=== PATIENT | female | born 1980 | race Caucasian/White ===

== ENCOUNTER 2020-11-09 05:05 | Inpatient (IN) | payer OTHER, SELFPAY ==
[2020-11-09] VITALS (122 sets, daily range): BP systolic 72–179; BP diastolic 35–157; PULSE 53–152; RESP 16–18; TEMP 36.4–37.1; O2SAT 73–100; BMI 29.3
[2020-11-09] MEDS: LACTATED RINGERS 1,000 ML 125 ML IV CONT ×3 (05:57→08:41)
--- NOTE | 2020-11-09 06:10 | LDADM ---
This patient, Stefani Alegria, was admitted to Labor/Delivery/Recovery 103 on 11/09/20 at 05:05. Plans for labor, pain management and were discussed with patient. Patient/family oriented to hospital policies and general routines including ID bracelet, bed and alarms, visiting hours, pain management, procedures, bathroom and other care routines, personal items, smoking policy, room service/diet and guest tray routines, security routines, and visiting hours. Patient/Family are encouraged to report perceived risks to care and to ask questions if they do not understand what they are told or what they should do. See OBIX for further documentation.
[2020-11-09 06:17] LABS: Basophils Percent Auto 0.3 % (0.2-1.2); Eosinophils Absolute Auto 0.1 K/mm3 (0-0.3); Eosinophils Percent Auto 1.1 % (0-4.4); Hematocrit 38.9 % (37.0-47.0); Hemoglobin 13.3 g/dL (12.0-15.0); Immature Granulocyte Absolute 0.09 K/mm3 (0.00-0.031); Immature Granulocyte Percent A 0.8 % (0-0.5); Lymphocytes Absolute Auto 1.81 K/mm3 (0.9-3.2); Lymphocytes Percent Auto 15.2 % (18.3-44.2); Mean Corpuscular HGB Conc 34.2 g/dl (32-36); Mean Corpuscular Volume 90.7 fl (80-100); Mean Platelet Volume 10.7 fl (7.4-10.4); Monocytes Percent Auto 8.2 % (2.6-8.5); Neutrophils Absolute Auto 8.9 K/mm3 (1.3-6.7); Neutrophils Percent Auto 74.4 % (45.5-73.1); Platelet Count Result 175 k/mm3 (150-375); Red Blood Count 4.29 M/mm3 (4.2-5.4); Red Cell Distribution Width 13.6 % (11.5-14.5); White Blood Count 11.9 K/mm3 (4.5-10.0)
[2020-11-09] MEDS: OXYTOCIN 30 UNITS/NS 500 ML 30 UNITS/500 ML BAG IV CONT (06:42)
--- NOTE | 2020-11-09 07:42 | WPDOBADMIT ---
Obstetrics - Admit Note Admission Note: record reviewed. No pertinent additions to the history and/or any subsequent changes in the physical findings that are not consistent with the expected course of the were found. AROm clear fluid 4-5/50/-2 vertex Additions to the history and/or subsequent changes in the physical findings follow. None.
[2020-11-09] MEDS: ePHEDrine sulfate INJ 50 MG/ML AMPUL (08:38)
--- NOTE | 2020-11-09 08:52 | P.PNAN_ITS ---
Anes - Eval Pre Procedure Procedure: Labor Pain Management Date/Time: 11/09/20 08:52 Surgeon: Ina Preop Diagnosis: Pain During Labor Pre Op Diagnosis: Induction of Labor Patient Data Age: 40 Gender: F Height: 1.65 m Weight: 80 kg Last Vital Signs Temp 98.8 F 11/09/20 07:41 Pulse 80 11/09/20 08:51 BP 91/67 L 11/09/20 08:51 Pulse Ox 98 11/09/20 08:47 Allergies Allergy/AdvReac Type Severity Reaction Status Date / Time No Known Allergies Allergy Verified 10/19/20 12:40 Laboratory Tests 11/09/20 11/09/20 11/09/20 05:39 05:39 05:39 WBC 11.9 K/mm3 H K/mm3 (4.5-10.0) RBC 4.29 M/mm3 M/mm3 (4.2-5.4) Hgb 13.3 g/dL g/dL (12.0-15.0) Hct 38.9 % % (37.0-47.0) MCV 90.7 fl fl (80-100) MCH 31.0 pg pg (26-34) MCHC 34.2 g/dl g/dl (32-36) RDW 13.6 % % (11.5-14.5) Plt Count 175 k/mm3 k/mm3 (150-375) MPV 10.7 fl H fl (7.4-10.4) Immature Gran % (Auto) 0.8 % H % (0-0.5) Neut % (Auto) 74.4 % H % (45.5-73.1) Lymph % (Auto) 15.2 % L % (18.3-44.2) [place] % (Auto) 8.2 % % (2.6-8.5) Eos % (Auto) 1.1 % % (0-4.4) Baso % (Auto) 0.3 % % (0.2-1.2) Lymph # (Auto) 1.81 K/mm3 K/mm3 (0.9-3.2) [place] # (Auto) 1.0 K/mm3 H K/mm3 (0.1-0.6) Eos # (Auto) 0.1 K/mm3 K/mm3 (0-0.3) Baso # (Auto) 0.0 K/mm3 K/mm3 (0.0-0.1) Abs Immat Gran (auto) 0.09 K/mm3 H K/mm3 (0.00-0.031) Absolute Neuts (auto) 8.9 K/mm3 H K/mm3 (1.3-6.7) Absolute Nucleated RBC 0.0 K/mm3 K/mm3 (0.0-0.012) Nucleated RBC % 0.0 % % (0.0-0.2) RPR Pending Blood Type B Positive Antibody Screen Negative : gestational age (EDC 11/15/20) HCG: positive Patient hx anesthesia problems: none Family hx anesthesia problems: none PMFSH Past Medical History Medical History (Updated 11/09/20 @ 08:54 by Denise Mccord CRNA) Pain during labor Family History Family History (Updated 10/19/20 @ 12:41 by Michael Stephenson RN) Other No pertinent family history Social History Social History Smoking status: Never smoker Substance use: never Spiritual care concerns: No Exam Day of Procedure 11/09/20 08:52
[2020-11-09 11:20] LABS: Rapid Plasma Reagin Non-Reactive (NonReactive)
--- NOTE | 2020-11-09 13:17 | PM.OBPRVD ---
OB - Delivery Note Procedure Delivery date: 11/09/20 Procedure: vavd events: Labor Induction Intrapartal events: None Induction method: AROM and per pitocin protocol Delivery monitor: external FHT and external uterine Route of delivery: vacuum extraction (one pull no pop off pressure green zone. ) Laceration Description: Perineal - 2nd Degree Delivery repair: vicryl Specimen: No Quantitative Blood Loss (ml): 160 Anesthesia type: Epidural Disposition: floor Baby Date of : 11/09/20 Time of : 12:57 Weeks of gestation at delivery: 39 gender: Female Weight (pounds): 7 Weight (ounces): 12 presentation: vertex position: Left Occiput Anterior Placenta delivery description: Spontaneous cord vessel description: 3 Vessels, Nuchal Cord and True Knot score one minute: 8 score five minutes: 9
[2020-11-09] MEDS: OXYTOCIN 30 UNITS/NS 500 ML 30 UNITS/500 ML BAG 125 UNITS IV CONT (13:27)
[2020-11-09] MEDS: IBUPROFEN 600 MG TABLET PO ×2 (15:08→21:30)
[2020-11-09] MEDS: WITCH HAZEL 40 PADS 1 PAD TOPICAL (15:09)
[2020-11-09] MEDS: BENZOCAINE 20% AER SPR (*SP) 56 GM CAN 1 SPRAY TOPICAL (15:09)
--- NOTE | 2020-11-09 16:22 | OBPPTRN ---
Patient transferred to post room # 285 via wheelchair. Support person present. Oriented to unit, room, information board, rooming in, admission packet and security measures. Patient verbalizes understanding. PT received instructions and education per mom baby care guide, one to one discussion and demonstration through out the shift. PT and spouse both recipients of such instructions and no barriers to learning identified.
[2020-11-10 00:13] VITALS: BP 105/58; PULSE 77; RESP 16; TEMP 36.3; O2SAT 99
[2020-11-10] MEDS: IBUPROFEN 600 MG TABLET PO ×2 (04:19→10:31)
[2020-11-10 05:21] VITALS: BP 112/60; PULSE 77; RESP 16; TEMP 36.8; O2SAT 100
[2020-11-10 05:24] LABS: Hematocrit 33.8 % (37.0-47.0); Hemoglobin 11.4 g/dL (12.0-15.0)
--- NOTE | 2020-11-10 07:15 | PC.NURSE ---
PT introductions made and plan of care discussed per post . pain management, breast feeding, daily care activities and pending discharge to home. PT received instructions and education this shift per one to one discussion, mom baby care guide and demonstration. PT and spouse both recipients of such instructions and no barriers identified. PT verbalized understanding of such care.
--- NOTE | 2020-11-10 07:28 | P.PNOB_ITS ---
OB - PN: Subj Subjective Date/time seen: 11/10/20 07:28 Patient comments: no complaints and pain well controlled baby status: doing well and nursing well OB - PN: Obj Data Labs CBC & Chem 7: 11/10/20 04:18 Labs: Laboratory Results - last 24 hr 11/09/20 11/09/20 11/10/20 05:39 05:39 04:18 Hgb 11.4 L Hct 33.8 L RPR Non-reactive Blood Type B Positive Antibody Screen Negative OB - PN A/P Plan day: 1 Plan: routine care, discharge home and follow up 6 weeks Time Spent With Patient Time: Total time spent is greater than 50% in coordination of care (as do cumented) at patient's floor/unit and/or counseling patient: Exam : Bimanual exam- vagina & uterus: other (Uterus firm, nt @U)
[2020-11-10 07:55] VITALS: BP 109/58; PULSE 80; RESP 16; TEMP 36.6; O2SAT 99
--- NOTE | 2020-11-10 08:55 | PC.NURSE ---
Consult with pt., mother reports pumping and bottle feeding with first child due to latch issues. Mother states this infant is eagerly latching without difficulties or discomfort. Mother is unsure if she will continue to put to breast, she liked the consistency of pumping and bottle feeding. Reviewed the Reviewed infant feeding cues, frequencies, duration of feedings, feeding elimination flow sheet, and signs of adequate intake. Discussed it is normal to wake for feedings and to stimulate during feedings to keep awake and nursing effectively. Reviewed effective vs ineffective nursing. Nipple care reviewed of lanolin after feeding, before pumping and warm compresses to nipples for tenderness. Mother verbalizes she is able to independently latch infant with appropriate positioning/alignment. She denies any nipple discomfort, is feeding as required and waking to feed if needed. has had several effective feedings in the past 24 hours, and is currently meeting outcomes for weight, output, jaundice and feeding frequencies. Mother states she feels confident to continue effective at home. Reviewed transition to breast milk, signs of adequate intake, and engorgement/relief. Instructed to call ICP if intake/output less than required. Reviewed regular medications mother is taking. Information provided per Jennifer. Reviewed community resources on the [facility] website and in the Mom/Baby guide. Information on outpatient services provided. Mother has no further questions at this time. Requested mother call out next feeding for LC sample shoe inspector and reworker to observe infant feeding. Mother v/u to request.
--- NOTE | 2020-11-10 09:49 | WPDANLDPN2 ---
Anes-Prog Note L&D Date/Time: 11/10/20 09:49 Comfortable throughout: labor and delivery Neuraxial method: epidural Epidural/Spinal procedure site: clean & non-tender Neuro status: Neuro function grossly intact. Cardiovascular status: normal Respiratory status: normal Airway patency: baseline Mental status: baseline Post-Op hydration status: normal Vital Signs: Last Vital Signs Temp 36.6 C 11/10/20 07:55 Pulse 80 11/10/20 07:55 Resp 16 11/10/20 07:55 BP 109/58 L 11/10/20 07:55 Pulse Ox 99 11/10/20 07:55 Pain score (VAS): 3 I/O: Intake & Output 11/09/20 11/10/20 11/10/20 23:59 07:59 15:59 Output Total 300 Balance -300 Post-procedural complaints: none Patient feedback: Patient satisfied with anesthetic care.
[2020-11-10] MEDS: DOCUSATE SODIUM 100 MG CAPSULE PO (10:30)
[2020-11-10] MEDS: LORATADINE 10 MG TABLET PO (10:32)
[2020-11-10 11:44] VITALS: BP 114/58; PULSE 73; RESP 16; TEMP 36.8; O2SAT 99
--- NOTE | 2020-11-10 13:40 | PC.NURSE ---
Mother called out for assist with feeding. Infant is able to freely thrust tongue past gum ridge and flange both lips. Skin is intact on both nipples, no redness and bruising noted. Observed mother is using cross cradle, holding breast in ?U? hold and guided asymmetrical latch on. Reviewed positioning/alignment and Discussed rational for each. Infant able to latch correctly. Reviewed signs of a correct latch, effective nursing and suck swallow ratio. Infant nursed eagerly, with steady draws and frequent swallowing noted. Reviewed the difference of effective vs ineffective nursing. Suggested mother stimulate while feeding to increase stimulation, increase intake and to assist with maintaining deep latch. was able to maintain latch without discomfort to mother. Demonstrated how to adjust latch more deeply while feeding if needed.
--- NOTE | 2020-11-10 14:07 | PC.NURSE ---
pt received discharge instructions per protocol and verbalized understanding of such care.
--- NOTE | 2020-11-10 14:56 | PC.NURSE ---
PT discharged to home ambulatory accompanied by spouse and and taken to waiting car. follow up appts confirmed
[2020-11-11 07:52] VITALS: BP 104/54; PULSE 83; RESP 16; TEMP 37; O2SAT 99
--- NOTE | 2021-01-02 12:10 | P.DS_ITS ---
DS: Admitting Diagnosis Discharge Date 11/10/20 Admitting Diagnosis induction of labor OB - DS: Summary OB Procedures : None OB Procedures Intrapartum: Spontaneous Vag Delivery OB Procedures: : None Time Spent with Patient Time attestation: Total time spent providing and/or coordinating discharge s ervices: Discharge Plan Discharge Attending physician on discharge: Zander Hernandez Discharging Clinician: Maty Dominique Anticipated Discharge Date/Time: 11/10/20 07:29 Patient Disposition: Home, Self-Care Activity: may shower and pelvic rest Diet: regular Discharge Instructions: Education: Mom and Baby Guide Given to: Mother Follow-Up: Call your delivering provider's office for an appointment to be seen in: 6 Weeks Mom and baby should come to the [facility] for the follow-up appointment. Appointment Date/Time: November 11, 2020 at 8:00 am What to expect at your follow-up visit: Blood Pressure Check Call [phone] if you are unable to keep your appointment time. BREAST CARE: * Wear a snug supportive bra. * For engorgement discomfort: Breast Feeding: * Apply warm moist washcloths * Express milk as needed to relieve engorgement * Wear loose clothing * For sore nipples: * Identify correct latch-on * Apply warm moist washcloths before and after nursing * Air dry nipples after nursing * May apply Lansinoh cream to nipples PERINEAL CARE: * Until bleeding stops, use your suraj bottle after urinating * Change your pad frequently throughout the day * You may take sitz baths several times a day (fill your bathtub with warm water and soak for 20 minutes.) Do NOT bathe in the water * No tub baths until seen by your physician - You may shower ACTIVITY: * Rest as much as possible. * Do not exercise or lift anything heavier than your baby (such as laundry or other children.) * Avoid stairs or driving as much as possible. * Do not put anything into the vagina. No douching, tampons, or sexual activity until seen by physician. NOTIFY PHYSICIAN IF YOU HAVE ANY QUESTIONS OR IF ANY OF THE FOLLOWING SYMPTOMS OCCUR: * If your perineum becomes red, swollen, or more painful than what you have experienced in the hospital. * If your vaginal bleeding becomes foul smelling. * If your vaginal bleeding becomes more heavy than a period or if your bleeding changes from pink to bright red. However, you may pass an occasional walnut- sized clot once or twice for the first week . * If you experience a sharp, shooting pain in you calves. * If you discover a hard, reddened area on your breast or if you experience flu- like symptoms. * If you have a fever of 100.4 or greater. DIET: * Eat regular, well-balanced meals. * Drink plenty of fluids daily. If , drink to thirst. Patient Instructions: Antibiotic Form Stand Alone Forms: General Discharge Information Follow-up/Referrals: Zander Hernandez MD [Physician] - 6 Weeks Date of admission: 11/09/20 05:05 Primary Care Provider: Kenroy Gore Admitting Provider: Zander Hernandez Attending physician on admission: Maty Dominique Condition: Stable Care Plan Goals: Plans condoms until vasectomy
== END 2020-11-10 14:56 | disposition home or self-care (01) | DRG 807 ==
LOC: ANHOB2 11-10 07:30 → ANHLDR 11-11 10:15 → ANHOB2 11-11 10:15
PROVIDERS: Admitting Provider Obstetrics & Gynecology; PCP Internal Medicine; Visit Provider Obstetrics & Gynecology Gynecology
DX: O69.2XX0 Labor and delivery complicated by other cord entanglement, with compression, not applicable or unspecified (principal); Z37.0 Single live birth; Z3A.39 39 weeks gestation of pregnancy; O70.1 Second degree perineal laceration during delivery; O36.8330 Maternal care for abnormalities of the fetal heart rate or rhythm, third trimester, not applicable or unspecified
CPT/HCPCS: 36415; 85014; 85018; 85025; 86592; 86850; 86900; 86901; A9270; J2590; J2795; J7120

== ENCOUNTER 2023-03-07 10:27 | Day surgery (SDC) | payer OTHER, SELFPAY ==
[2023-02-21 09:23] VITALS: BMI 26.6
[2023-03-07 11:50] VITALS: BP 122/72; PULSE 85; RESP 16; TEMP 36.5; O2SAT 100
[2023-03-07] MEDS: LACTATED RINGERS 1,000 ML 150 ML IV CONT (12:04)
--- NOTE | 2023-03-07 12:06 | PM.HPGS ---
History of Present Illness History of Present Illness Consent: Risks, benefits, and alternatives have been discussed and questions answered. Patient agrees to proceed with procedure. Chief complaint: Family History of Colon Cancer and polylps Narrative: Stefani Alegria is a 42 year old female Presents for screening colonoscopy. Patient's father has had colon polyps. A sister had colon polyps. Patient also reports that her grandfather had colon cancer and her great grandmother also had colon cancer. A cousin has had colon cancer. Patient presents today for screening colonoscopy. She reports that her own it is are normal. Patient denies abdominal pain. She has had no bleeding. S been a good health. Review of Systems Review of Systems: Review of systems noncontributory. [facility] Past Medical History Medical History (Updated 03/07/23 @ 12:09 by Faraz Mitchell MD) Pain during labor Family History Family History (Updated 10/19/20 @ 12:41 by Michael Stephenson RN) Other No pertinent family history Social History Social History Smoking status: Never smoker Alcohol intake: current Substance use: never Substance use type: does not use Living arrangements: with family Spiritual care concerns: No Meds Home Medications and Allergies Home Medications Medication Instructions Recorded Confirmed Type No Home Medications 02/21/23 03/07/23 History Allergies Allergy/AdvReac Type Severity Reaction Status Date / Time No Known Allergies Allergy Verified 03/07/23 11:48 Vital Signs Vital Signs - 24 hr 03/07/23 11:50 Temperature 97.7 F Pulse Rate 85 Respiratory Rate 16 Blood Pressure 122/72 Pulse Oximetry 100 Oxygen Delivery Room Air Exam Narrative: Physical exam reveals patient vital signs stable. HEENT exam is unremarkable. Patient is anicteric. Lungs are clear to auscultation and percussion. Heart is without murmur or extra sounds. Abdominal exam bowel sounds are present soft nontender with no organomegaly. Digital external rectal rectal exam is normal. Assessment and Plan Assessment and plan (1) Family hx of colon cancer: Code(s): Z80.0 - Family history of malignant neoplasm of digestive organs Status: Acute Assessment and Plan: Several extended family members with colon cancer. Her father and sister have had colon polyps. Plan for surveillance colonoscopy at 5 year intervals. (2) Family history of colonic polyps: Code(s): Z83.719 - Family history of colon polyps, unspecified Status: Acute Assessment and Plan: patients father and sister have had colon polyps. Surveillance colonoscopy advised 5 year intervals.
--- NOTE | 2023-03-07 12:28 | WPDANESEPPF ---
Anes - Initial Pre Proc Eval Procedure: Operation Date: 03/07/23 13:00 Proposed Procedures p Colonoscopy - Faraz Mitchell MD Date/Time: 03/07/23 12:28 Surgeon: Faraz Mitchell MD Pre Op Diagnosis: Family History of Colon Cancer and polylps Patient Data Age: 42 Gender: F Height: 1.65 m Weight: 71 kg Last Vital Signs Temp 36.5 C 03/07/23 11:50 Pulse 85 03/07/23 11:50 Resp 16 03/07/23 11:50 BP 122/72 03/07/23 11:50 Pulse Ox 100 03/07/23 11:50 O2 Del Method Room Air 03/07/23 11:50 Allergies Allergy/AdvReac Type Severity Reaction Status Date / Time No Known Allergies Allergy Verified 03/07/23 11:48 Home Medications Medication Instructions Recorded Confirmed Type No Home Medications 02/21/23 03/07/23 History Patient hx anesthesia problems: none Family hx anesthesia problems: none Results Review: All pre-operative results and documents have been reviewed as part of the pre-operative evaluation. [facility] Past Medical History Medical History (Updated 03/07/23 @ 12:29 by Marlon Sams MD) Migraine Pain during labor Surgical History Surgical History (Updated 03/07/23 @ 12:29 by Marlon Sams MD) H/O colonoscopy Family History Family History (Updated 03/07/23 @ 12:29 by Marlon Sams MD) Other Carcinoma of colon Social History Social History Smoking status: Never smoker Alcohol intake: current Substance use: never Substance use type: does not use Living arrangements: with family Spiritual care concerns: No Anes - Eval Final PreProcedure Day of Procedure 03/07/23 12:28 Patient weight: overweight Heart: regular rate and rhythm Lungs: clear to auscultation Airway: Mallampati scale class 1 Neurological: alert and oriented Last oral intake: >/= 8 hours ASA classification: II Emergent: no Anesthetic plan: proceed Anesthesia type and monitoring: general GIVS and standard monitoring Results Review: All pre-operative results and documents have been reviewed as part of the pre-operative evaluation. Informed Consent: The patient's anesthetic plan and its attendant risks and benefits were discussed with the patient/family/POA. Questions were solicited and answers provided to the satisfaction of the patient/family/POA.
[2023-03-07 13:26] VITALS: BP 104/53; PULSE 87; RESP 16; O2SAT 100
[2023-03-07 13:36] VITALS: BP 90/67; PULSE 71; RESP 16; O2SAT 100
--- NOTE | 2023-03-07 13:42 | WPDANESPN ---
Anes - Prog Note Post-Op Date/Time: 03/07/23 13:42 Cardiovascular status: normal Respiratory status: normal Airway patency: baseline Mental status: baseline Post-Op hydration status: normal Vital Signs: Last Vital Signs Temp 36.5 C 03/07/23 11:50 Pulse 71 03/07/23 13:36 Resp 16 03/07/23 13:36 BP 90/67 L 03/07/23 13:36 Pulse Ox 100 03/07/23 13:36 O2 Del Method Room Air 03/07/23 13:36 Pain Score (VAS): 0/10 I/O: Intake & Output 03/06/23 03/07/23 03/07/23 23:59 07:59 15:59 Intake Total 600 Balance 600 Patient Feedback: Patient satisfied with anesthetic care.
[2023-03-07 13:46] VITALS: BP 120/74; PULSE 67; RESP 16; O2SAT 100
== END 2023-03-07 14:00 | disposition home or self-care (01) ==
PROVIDERS: PCP Internal Medicine; Visit Provider Internal Medicine Gastroenterology
PROC: 0DJD8ZZ Inspection of Lower Intestinal Tract, Via Natural or Artificial Opening Endoscopic (ICD-10-PCS; CPT 45378; principal; 2023-03-07 13:00)
DX: Z83.718 Family history of other colon polyps (principal)
CPT/HCPCS: 45378

== ENCOUNTER 2023-07-01 01:15 | Day surgery (SDC) | payer OTHER, SELFPAY ==
[2023-06-24 08:55] VITALS: BMI 26.7
--- NOTE | 2023-06-24 09:02 | PC.NURSE ---
Report to the Outpatient Waiting Room, entrance under the green pavilion located off [facility], at time _0730__ on date _07/01/23__. Planned Procedure Time: _0930_. Time changes happen often and if your time is changed the preop area will call you the afternoon before. - You and your visitor will be asked to self-screen and do not enter if you have any COVID symptoms. - A mask is optional within the hospital at this time. Patients may have clear liquids (water, carbonated beverages, clear teas, apple juice) until 3 hours prior to surgery with a maximum of 20 ounces. - No food from midnight until time of surgery - Infants may have breast milk until 4 hours before surgery, infant formula 6 hours prior to surgery. - Children will be allowed to drink immediately following surgery. If applicable, please bring a bottle or sippy cup to assist with drinking. Juice, water, soda, and popsicles are readily available. For infants on formula, please bring formula the day of surgery. Pacifiers are allowed. Take the following medications with a SIP of water the morning of surgery: __NONE DO NOT STOP ANY OF YOUR OTHER PRESCRIPTION MEDICATIONS PRIOR TO SURGERY ?EXCEPT THE FOLLOWING Medications to discontinue per physician MUTLTIVITAMIN Date to take last dose___06/28/23____ Please no make-up, nail german, hairspray, perfume, deodorant, or body powder the day of surgery. No jewelry (including any body piercings) or valuables the day of surgery, leave them at home. Please take a shower or bath the night before, or the morning of, surgery with an antibacterial soap. Wear comfortable, loose fitting clothing. Children are encouraged to wear pajamas. - Jewelry must be removed prior to entering the operating room. Rings and piercings that are not removed may be cut off. - The hospital will not accept responsibility for valuables. - Please leave all valuables, including medications, at home the day of surgery. If you are going home after surgery, a licensed rail car driver must drive you home. - NO public transportation without another adult if you receive anesthesia. - We recommend that an adult stay with you for 24 hours following discharge. - We also recommend that you do not drive, make important decision, drink alcoholic beverages, or take any drugs that were not prescribed by your health care provider for at least 24 hours after your discharge time. For Pediatric surgeries, we recommend two adults accompany the child home. Follow any additional instructions given to you from your surgeon. If you or anyone in your household have experienced Covid symptoms in the past week, please notify your surgeon or the nurse liaison at the phone number below for possible testing. Telephone instructions given to _GREGOR__and asked if any additional questions and then verbalized understanding. Patient advised to call surgeon office or pre surgery nurse liaison [phone] if any additional questions.
[2023-07-01 06:35] VITALS: BP 118/60; PULSE 73; RESP 14; TEMP 36.7; O2SAT 100
[2023-07-01] MEDS: LACTATED RINGERS 1,000 ML 30 ML IV CONT (06:55)
[2023-07-01] MEDS: ACETAMINOPHEN 500 MG TABLET 1000 MG PO (06:55)
--- NOTE | 2023-07-01 07:13 | WPDHPUPDATE1 ---
History and Physical Update Update Date/Time: 07/01/23 07:13 History and Physical has been reviewed, including an updated exam of the patient. There are NO changes in the patient's condition. Risks, benefits, and alternatives have been discussed and questions answered. Patient agrees to proceed with procedure.
--- NOTE | 2023-07-01 07:13 | PM.HPGS ---
History of Present Illness History of Present Illness Consent: Risks, benefits, and alternatives have been discussed and questions answered. Patient agrees to proceed with procedure. Chief complaint: Irrg Bleeding Narrative: Stefani Alegria is a 42 year old female with change in her cycles. Patient is bleeding 2 times per month every 2 weeks since February. It was recommended to undergo D&C hysteroscopy to further evaluate. The risks of infection, bleeding, perforation, and possible pathology were discussed. Patient voices understanding and agrees to proceeed. Review of Systems Review of Systems: not repeated day of surgery; patient states no changes in status [facility] Past Medical History Medical History (Updated 07/01/23 @ 07:16 by Maty Dominique MD) History of stroke 2013 Migraine (normal spontaneous vaginal delivery) x2 Surgical History Surgical History (Updated 03/07/23 @ 12:29 by Marlon Sams MD) H/O colonoscopy Family History Family History (Updated 03/07/23 @ 12:29 by Marlon Sams MD) Other Carcinoma of colon Social History Social History Smoking status: Never smoker Alcohol intake: current Drinks per week: 1 Substance use: never Substance use type: does not use Living arrangements: with family Spiritual care concerns: No Meds Home Medications and Allergies Home Medications Medication Instructions Recorded Confirmed Type multivit with minerals-iron 18 1 tablet PO DAILY 06/24/23 06/24/23 History mg-folic ac 400 mcg-vit K 25 mcg tablet (Adults Multivitamin) Allergies Allergy/AdvReac Type Severity Reaction Status Date / Time No Known Allergies Allergy Verified 07/01/23 07:13 Vital Signs Vital Signs - 24 hr 07/01/23 06:35 Temperature 98.1 F Pulse Rate 73 Respiratory Rate 14 Blood Pressure 118/60 Pulse Oximetry 100 Oxygen Delivery Room Air Exam Const: General: healthy appearing and alert Orientation/consciousness: patient oriented x3 Resp: Effort & Inspection: normal respiratory effort : External Female Exam: normal external appearance Speculum Exam - Vagina: normal appearance of the vagina and normal vaginal discharge Speculum Exam - Cervix: normal appearance of the cervix Bimanual exam- vagina & uterus: uterine size normal and consistency normal Bimanual Exam- Adnexa, other: normal adnexae and No adnexal tenderness Neuro: General: patient oriented x3 Assessment and Plan Assessment and plan (1) Menorrhagia: Code(s): N92.0 - Excessive and frequent menstruation with regular cycle Status: Acute Assessment and Plan: plan to proceed D&C hysteroscopy
--- NOTE | 2023-07-01 07:40 | P.PNAN_ITS ---
Anes - Initial Pre Proc Eval Procedure: Operation Date: 07/01/23 08:15 Proposed Procedures p Hysteroscopy Dilation and Curettage - Maty Dominique MD Date/Time: 07/01/23 07:40 Surgeon: Maty Dominique MD Pre Op Diagnosis: Irrg Bleeding Patient Data Age: 42 Gender: F Height: 1.65 m Weight: 75.4 kg Last Vital Signs Temp 36.7 C 07/01/23 06:35 Pulse 73 07/01/23 06:35 Resp 14 07/01/23 06:35 BP 118/60 07/01/23 06:35 Pulse Ox 100 07/01/23 06:35 O2 Del Method Room Air 07/01/23 06:35 Allergies Allergy/AdvReac Type Severity Reaction Status Date / Time No Known Allergies Allergy Verified 07/01/23 07:13 Home Medications Medication Instructions Recorded Confirmed Type multivit with minerals-iron 18 1 tablet PO DAILY 06/24/23 06/24/23 History mg-folic ac 400 mcg-vit K 25 mcg tablet (Adults Multivitamin) Patient hx anesthesia problems: none Family hx anesthesia problems: none Results Review: All pre-operative results and documents have been reviewed as part of the pre- operative evaluation. [facility] Past Medical History Medical History History of stroke 2013 Migraine (normal spontaneous vaginal delivery) x2 Surgical History Surgical History H/O colonoscopy Family History Family History Other Carcinoma of colon Social History Social History Smoking status: Never smoker Alcohol intake: current Drinks per week: 1 Substance use: never Substance use type: does not use Living arrangements: with family Spiritual care concerns: No Anes - Eval Final PreProcedure Day of Procedure 07/01/23 07:40 Patient weight: overweight Heart: regular rate and rhythm Lungs: clear to auscultation Airway: Mallampati scale class II Neurological: alert and oriented Last oral intake: >/= 8 hours ASA classification: II Emergent: no Anesthetic plan: proceed Anesthesia type and monitoring: general GIVS and standard monitoring Results Review: All pre-operative results and documents have been reviewed as part of the pre- operative evaluation. Informed Consent: The patient's anesthetic plan and its attendant risks and benefits were discussed with the patient/family/POA. Questions were solicited and answers provided to the satisfaction of the patient/family/POA.
--- NOTE | 2023-07-01 08:08 | P.OP_ITS ---
Procedure Note - Detailed Date of Procedure 07/01/23 Pre-op Diagnosis menometrorrhagia Post-op Diagnosis Same Procedure Performed D&C hysteroscopy Surgeon Maty Dominique MD Anesthesia MAC Findings uterus sounds to 8cm and appears grossly normal Description of Procedure The patient is taken to the operating room and placed under anesthesia in the dorsal lithotomy position. She was prepped and draped in the usual sterile fashion. [place] speculum was placed in the vagina and the cervix grasped on the anterior lip a tenaculum. The uterus is sounded to 8cm. The diagnostic hysteroscope was placed and no abnormalities were noted. The hysteroscope was removed and the OO sharp curette is used to curette the endometrium until a good uterine cry was noted in all areas. All instruments are removed. Sponge, needle, and instrument counts are correct per the OR staff. The patient was awakened from anesthesia and taken to recovery in stable condition. Estimated Blood Loss 5 Drains No Packing No Pathology Yes ( Endometrial curettings) Complications No immediate complications Condition Stable Disposition PACU
[2023-07-01 08:09] VITALS: BP 106/51; PULSE 78; RESP 16; O2SAT 92
[2023-07-01 08:30] VITALS: BP 97/51; PULSE 60; RESP 16; O2SAT 99
[2023-07-01 08:55] VITALS: BP 99/46; PULSE 59; RESP 16
== END 2023-07-01 09:03 | disposition home or self-care (01) ==
PROVIDERS: PCP Internal Medicine; Visit Provider Obstetrics & Gynecology Gynecology
PROC: 0U5B8ZZ Destruction of Endometrium, Via Natural or Artificial Opening Endoscopic (ICD-10-PCS; CPT 58563; principal; 2023-07-01 08:15)
DX: N92.0 Excessive and frequent menstruation with regular cycle (principal); Z86.73 Personal history of transient ischemic attack (TIA), and cerebral infarction without residual deficits; Z80.0 Family history of malignant neoplasm of digestive organs
CPT/HCPCS: 58558; 88305; A9270; J2250; J2704; J3010; J7120

== ENCOUNTER 2024-04-15 10:56 | Outpatient (CLI) | payer OTHER, SELFPAY ==
--- NOTE | ~2024-04-15 | MM_ITS ---
EXAMINATION: MM screening roberta BI w hermilo HISTORY: Screening TECHNIQUE: Craniocaudal and mediolateral oblique 3-D tomosynthesis images were obtained and synthetic 2-D images were generated. CAD analysis was submitted and interpreted. COMPARISON: No prior mammogram is available for comparison at this institution. BREAST PARENCHYMAL COMPOSITION: Not dense: There are scattered areas of fibroglandular density. FINDINGS: There is no evidence of suspicious mass, calcification, or architectural distortion to sugg est malignancy in either breast. There has been no suspicious interval change. IMPRESSION: 1. No mammographic evidence of malignancy. 2. Recommend routine screening mammography in one year. BI-RADS Category 1: Negative Reviewed, dictated and finalized at location A. 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
== END 2024-04-15 10:57 | disposition home or self-care (01) ==
LOC: MICIMG 11:00
PROVIDERS: PCP Internal Medicine; Visit Provider Internal Medicine
DX: Z12.31 Encounter for screening mammogram for malignant neoplasm of breast (principal)
CPT/HCPCS: 77063; 77067

== ENCOUNTER 2025-01-08 09:13 | Outpatient (CLI) | payer OTHER, SELFPAY ==
--- NOTE | ~2025-01-08 | XR_ITS ---
XR thoracic spine 2V Indication: NECK/UPPER BACK PAIN Comparison: None Findings: The vertebral heights are intact. No fracture or subluxation. The disc heights are intact. Soft tissues unremarkable Impression: No acute abnormality. Reviewed, dictated and finalized at location P. Impression: No acute abnormality.
--- NOTE | ~2025-01-08 | XR_ITS ---
XR_[id number]_CR Indication: NECK/UPPER BACK PAIN Comparison: None Findings: The vertebral heights are intact. No fracture or subluxation. The disc heights are intact. Soft tissues unremarkable Impression: No acute abnormality. Reviewed, dictated and finalized at location P. Impression: No acute abnormality.
--- OUTSIDE RECORDS SUMMARY | 2025-01-08 09:35 | XMS_ITS | Clinical Summary ---
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 Active cholecalciferol 50,000 unit Capsule Take by mouth. Active vit-iron fumarate-fa (BROOK ) 28 mg iron- 800 mcg Tablet Take 1 Tablet by mouth daily. 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 Pulse - - Temperature - - Respiratory Rate - - Oxygen Saturation - - Inhaled Oxygen Concentration - - Weight 76.2 kg (168 lb) 02/06/2017 2:41 PM BEHAVIOR SPECIALIST Height 165.1 cm (5' 5) 02/06/2017 2:41 PM BEHAVIOR SPECIALIST Body Mass Index 27.96 02/06/2017 2:41 PM BEHAVIOR SPECIALIST Plan of Treatment Health Maintenance Due Date Last Done Comments DTAP/TDAP/TD VACCINES (1 - Tdap) 2000 HEPATITIS B VACCINES (1 of 3 - 19+ 3-dose series) 10/23 HPV/Cotest (21-29) 2002 HPV VACCINES (1 - 3-dose SCDM series) 2008 CERVICAL CANCER SCREENING 11/10/2011 HPV/Cotest (30-65) 11/10/2011 PAP SMEAR 11/10/2011 BREAST CANCER SCREENING 2021 INFLUENZA VACCINE (#1) 2024 Insurance [facility] [employer] PPO [id number] Care Teams Stripper And Opaquer Apprentice Relationship Specialty Start Date End Date Kenroy Gore MD [address] [place] [address] PCP - General Internal Medicine 10/18/16
== END 2025-01-08 09:14 | disposition home or self-care (01) ==
PROVIDERS: PCP Internal Medicine; Visit Provider Internal Medicine
DX: M54.2 Cervicalgia (principal); M54.6 Pain in thoracic spine
CPT/HCPCS: 72040; 72070